=== PATIENT | male | born 1995 | race Caucasian/White ===

== ENCOUNTER 2023-05-28 09:15 | Outpatient (CLI) | payer OTHER, SELFPAY ==
--- NOTE | 2023-06-20 19:43 | WPDSLEEPSTUD ---
Sleep Study Date of Study: 05/28/23 Ordering Provider: Emy Mann MD Interpreting Physician: Emy Mann MD Sleep Study Type: Polysomnogram Height: 1.85 m Weight: 112.037 kg Body Mass Index: 32.5 Neck Circumference (inches): 16 [place]: 13 Reason for Sleep Study Narcolepsy without cataplexy * 03/19/2016, [facility]; nocturnal polysomnogram negative for obstructive sleep apnea, AHI 2.8. * 06/11/2016, [facility]; BMI was 27. Nocturnal polysomnogram showed apnea-hypopnea index 1.2, multiple sleep latency test the following day showed a mean sleep latency of 1 minute 29 seconds and REM on naps 3 and 4. 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 He was on treatment using modafinil for a while, ended up going off of it for several reasons. He now is having problems managing his hypersomnolence and presents for additional evaluation. He Never awakens from sleep feeling short of breath. He never wakes at night with heartburn, belching or coughing.??He never snores, never snores loudly enough that others complain. He rarely has trouble sleeping when he has a cold. He never wakes up gasping for breath during the night. He never has breathing problems at night. He rarely sweats excessively at night. He never notices his heart pounding or beating irregularly during the night. He occasionally falls asleep during the day. He rarely falls asleep involuntarily, rarely falls asleep while driving. He never experiences loss of muscle tone with strong emotion. He frequently has daytime difficulty at work due to excessive sleepiness. He never feels paralyzed on waking or falling asleep. He rarely experiences vivid dreams upon waking or falling asleep. He rarely feels afraid of going to sleep. He rarely has nightmares. He occasionally recalls his dreams. He rarely has thoughts racing through his mind. He never feels sad or depressed. He never feels anxiety. He rarely notices parts of his body jerk. He rarely kicks during the night. He never feels crawling or aching feelings in his legs. He never feels leg pain at night. He rarely has morning jaw pain, rarely grinds his teeth at night. He never feels bothered by pain during the day, never is awakened by pain during the night. He never wakes up feeling stiff in the morning, and he never wakes feeling sore or achy. He never awakens with pain in his neck, spine, or joints. Normal bedtime is 11:30 p.m., falling asleep quickly, waking infrequently at night. if he does wake, it is to go to the bathroom, get a snack and drink water. Wake time is 8:30 a.m.. He typically gets 9 hours of sleep per night. on week , bedtime may be later, 12 30 but his wake time is still around 830 in the morning. He avoids naps in the day because he has a difficult time waking after being asleep in the day. A short nap lasting 10-15 minutes is not refreshing. He reports a 10 lb weight gain in the last year. Habits:??Tobacco: never smoker Caffeine: 1-2 per day Alcohol: none Recreational substances: none PMFSH Past Medical History Medical History Narcolepsy without cataplexy Family History Family History Mother Diabetes mellitus Father Asthma Family history of sleep apnea Sibling Asthma Patient's sister is in good health Social History Social History Smoking status: Never smoker Smoking end date: 04/08/13 Medications Medications: No regular medications Sleep Procedure A full night polysomnogram using the Synchronized [employer] multi-channel system recorded the standard physiologic parameters including EEG, EOG, submentalis EMG, anterior tibialis EMG, EKG, body position, nasal and oral airflow using nasal pressure sensor and thermistor. Respiratory
[2023-06-25 16:04] VITALS: BMI 32.5
--- NOTE | 2023-06-25 16:11 | WPDSLEEPSTUD ---
Sleep Study Date of Study: 05/29/23 Ordering Provider: Emy Mann MD Interpreting Physician: Emy Mann MD Sleep Study Type: Polysomnogram Height: 1.85 m Weight: 112.037 kg Body Mass Index: 32.5 Neck Circumference (inches): 16 [place]: 13 Reason for Sleep Study hypersomnolence Sleep History See sleep history on the basic nocturnal polysomnogram the night before this study. The patient had greater than 6 hours of sleep, AHI was 3.8, and he proceeded to this multiple sleep latency test per protocol. [facility] Past Medical History Medical History Narcolepsy without cataplexy Family History Family History Mother Diabetes mellitus Father Asthma Family history of sleep apnea Sibling Asthma Patient's sister is in good health Social History Social History Smoking status: Never smoker Smoking end date: 04/08/13 Sleep Procedure The recording montage for the MSLT includes central EEG (C3-A2, C4-A1) and occipital (O1-A2, O2-A1) derivations, left and right eye electrooculograms (EOGs), mental/submental electromyogram (EMG), and electrocardiogram (EKG). Nap 1 commenced at 07:13:26 AM. Sleep latency was 7.5 minutes. REM sleep did not occur. Total sleep time was 15.5 minutes. Nap was terminated at 07:36:18 AM. The patient reported that sleep occurred.The patient reported that dreaming occurred. Nap 2 commenced at 09:10:56 AM. Sleep latency was 1.5 minutes. REM sleep occurred. REM latency was 6.4 minutes. Total sleep time was 15.5 minutes. Nap was terminated at 09:27:51 AM. The patient reported that sleep occurred.The patient reported that dreaming occurred. Nap 3 commenced at 11:08:26 AM. Sleep latency was 0 minutes. REM sleep did not occur. Total sleep time was 13.9 minutes. Nap was terminated at 11:23:53 AM. The patient reported that sleep occurred.The patient reported that dreaming occurred. Nap 4 commenced at 01:06:56 PM. Sleep latency was 3.5 minutes. REM sleep occurred. REM latency was 0 minutes. Total sleep time was 15.0 minutes. Nap was terminated at 01:25:53 PM. The patient reported that sleep occurred.The patient reported that dreaming occurred. Nap 5 commenced at 03:08:56 PM. Sleep latency was 2.0 minutes. REM sleep did not occur. Total sleep time was 9.9 minutes. Nap was terminated at 03:26:22 PM. The patient reported that sleep occurred.The patient reported that dreaming occurred. The patient achieved sleep in 5 of 5 nap opportunities. The overall average sleep latency was 2.9 minutes. The patient achieved REM sleep (SOREM) in 2 naps. The overall average REM latency was 3.0 minutes. Sleep Architecture NA Respiratory Analysis NA Arousals NA Periodic Limb Movements NA Oximetry Data NA Snoring Profile NA Cardiac Profile NA EEG Profile Unremarkable, no seizures. Assessment and Plan Assessment and Plan (1) Narcolepsy: Qualifiers: Narcolepsy type: primary without cataplexy Qualified Code(s): G47.419 - Narcolepsy without cataplexy Code(s): G47.419 - Narcolepsy without cataplexy Status: Acute Assessment and Plan: This multiple sleep latency test on May 29, 2023 is consistent with narcolepsy. The patient had a mean sleep latency of 2.9 minutes, pathologically short. The patient achieved REM sleep in 2/5 naps and sleep on all 5/5 naps. The average REM latency was 3 minutes. Clinical correlation is recommended. Data The data obtained during this sleep study is adequate for interpretation. Certification This sleep study has been reviewed by a board certified sleep medicine physician.
[2023-06-25 16:16] VITALS: BMI 32.5
== END 2023-05-29 15:50 | disposition home or self-care (01) ==
LOC: ANHCSM 09:17
PROVIDERS: PCP Family Medicine; Visit Provider Internal Medicine Critical Care Medicine
DX: G47.419 Narcolepsy without cataplexy (principal); G47.10 Hypersomnia, unspecified
CPT/HCPCS: 95805; 95810